=== PATIENT | female | born 1985 | race Caucasian/White ===

== ENCOUNTER 2021-02-26 18:10 | Emergency (ER) | payer MEDICAID ==
[~2021-02-26] VITALS: Ht 157.5 cm; Wt 81.8 kg
--- NOTE | 2021-02-26 21:03 | NUR ---
PT ROOMED TO BED 2. ASSUMED CARE OF PT.
--- NOTE | 2021-02-26 21:13 | NUR ---
PT AMBULATED TO ROOM. HAS FULL RANGE OF MOTION TO EXTREMITIES AND NECK. NOTES PAIN TO LEFT HIP AND LEG.
[2021-02-26 22:02] VITALS: BP 120/73
== END 2021-02-26 22:04 | disposition home or self-care (01) ==
LOC: ER 18:12
DX: S39.012A Strain of muscle, fascia and tendon of lower back, initial encounter (principal); M79.652 Pain in left thigh; W03.XXXA Other fall on same level due to collision with another person, initial encounter; Y93.89 Activity, other specified; Y92.480 Sidewalk as the place of occurrence of the external cause; Y99.8 Other external cause status
CPT/HCPCS: 99282

== ENCOUNTER 2021-11-03 10:04 | Emergency (ER) | payer MEDICAID ==
[~2021-11-03] VITALS: Ht 157.5 cm; Wt 97.7 kg
--- NOTE | 2021-11-03 11:07 | NUR ---
PAWAN CALLED AND OBTAINED CASE #: [id number]. [employer] OFFICER ANUPAM; MAKSIM # [id number] TOOK THE REPORT
[2021-11-03] MEDS ORDERED: ondansetron 4mg rapidly disintigrating tab PO ONE (11:55)
[2021-11-03 12:51] LABS: CLARITY,URINE CLEAR (Clear); COLOR,URINE YELLOW (Yellow); GLUCOSE, URINE NEGATIVE (Neg); KETONES,URINE NEGATIVE (Neg); LEUKOCYTE ESTERASE ,URINE NEGATIVE (Neg); NITRITES, URINE NEGATIVE (Neg); OCCULT BLOOD,URINE NEGATIVE (Neg); PROTEIN,URINE NEGATIVE (Neg); UROBILINOGEN,URINE 0.2 E.U/dL (0.2-1.0)
[2021-11-03 12:53] LABS: URINE HCG NEGATIVE (NEG)
[2021-11-03 12:54] LABS: UA COLLECTION TYPE CLN CATCH MIDSTREAM
[2021-11-03] MEDS ORDERED: ketorolac trometh. 30mg/ml inj. IM ONE (13:00)
[2021-11-03] MEDS ORDERED: cyclobenzaprine 10mg tablet PO ONE (14:30)
[2021-11-03 14:49] VITALS: BP 128/78
== END 2021-11-03 14:53 | disposition home or self-care (01) ==
LOC: ER 10:04 → EEVIPCON 10:04 → ER 14:53
DX: S39.012A Strain of muscle, fascia and tendon of lower back, initial encounter (principal); S06.0X0A Concussion without loss of consciousness, initial encounter; X58.XXXA Exposure to other specified factors, initial encounter; Y93.89 Activity, other specified; Y92.89 Other specified places as the place of occurrence of the external cause; Y99.8 Other external cause status
CPT/HCPCS: 71111; 81003; 81025; 96372; 99284; J1885